=== PATIENT | female | born 1945 ===

== ENCOUNTER 2018-03-31 09:35 | Emergency (ER) | payer MEDICARE ==
[2018-03-31 09:46] VITALS: BMI 36.3
[2018-03-31 09:53] VITALS: BP 136/90; PULSE 79; RESP 18; TEMP 99; O2SAT 99
--- NOTE | 2018-03-31 10:43 | C.PDOC ---
History Of Present Illness 73 y/o female presents to the ED complaining of bilateral eye redness that began yesterday. Denies any trauma or change in vision. Reports both eyes are mildly itchy. No recent travel or sick contacts. Also denies pain with eye movement. Time Seen by Provider: 03/31/18 09:53 Chief Complaint (Nursing): Eye Problem History Per: Patient History/Exam Limitations: no limitations Onset/Duration Of Symptoms: Days (x2) Current Symptoms Are (Timing): Still Present Past Medical History Reviewed: Historical Data, Nursing Documentation, Vital Signs Vital Signs: Last Vital Signs Temp 99.0 F 03/31/18 09:49 Pulse 79 03/31/18 09:49 Resp 18 03/31/18 09:49 BP 136/90 03/31/18 09:49 Pulse Ox 99 03/31/18 14:41 - Medical History PMH: HTN Other Surgeries: Left knee surgery, tubal ligation Family History: States: No Known Family Hx - Social History Hx Alcohol Use: No Hx Substance Use: No Review Of Systems Except As Marked, All Systems Reviewed And Found Negative. Constitutional: Negative for: Fever Eyes: Positive for: Redness, Other (itchiness). Negative for: Pain, Vision Change ENT: Negative for: Ear Pain Respiratory: Negative for: Cough Physical Exam - Physical Exam Appears: Non-toxic, No Acute Distress Skin: Normal Color, Warm, Dry Head: Atraumatic, Normacephalic Eye(s): bilateral: EOMI, Other (Conjunctival injection bilaterally; Globes of both eyeballs are soft to palpation) Nose: Normal Oral Mucosa: Moist Neck: Normal ROM, Supple Chest: Symmetrical Respiratory: No Accessory Muscle Use, Other (No acute respiratory distress) Neurological/Psych: Oriented x3, Normal Speech ED Course And Treatment O2 Sat by Pulse Oximetry: 99 (RA) Pulse Ox Interpretation: Normal Medical Decision Making Medical Decision Making: Initial Impression: Conjunctivitis Time: 10:09 Plan: Counseled regarding diagnosis and treatment plan. Patient will be discharged with rx for polytrim drops. There is agreement to discharge plan. Disposition Counseled Patient/Family Regarding: Diagnosis, Need For Followup, Rx Given - Disposition Referrals: Zhou Rogers [Staff Provider] - Disposition: HOME/ ROUTINE Disposition Time: 10:15 Condition: GOOD Additional Instructions: MARK FELICIANO, thank you for letting us take care of you today. Your provider was Jered Santiago DO. The emergency medical care you received today was directed at your acute symptoms. If you were prescribed any medication , please fill it and take as directed. It may take several days for your symptoms to resolve. Return to the Emergency Department if your symptoms worsen , do not improve, or if you have any other problems. Please contact your doctor or call one of the physicians/clinics you have been referred to that are listed on the Patient Visit Information form that is included in your discharge packet. Bring any paperwork you were given at discharge with you along with any medications you are taking to your follow up visit. Our treatment cannot replace ongoing medical care by a primary care provider outside of the emergency department. Thank you for allowing the [facility] team to be part of your care today. Follow up with the eye doctor on Monday for re-evaluation and further management. MARK FELICIANO, angeline por dejarnos atedavon carranza. Coppola proveedor fue Jered Santiago DO. La atencin mdica de emergencia que recibi hoy estaba dirigida a mendy sntomas agudos. Si le prescribieron algn medicamento, llnelo y tome segn las indicaciones. Mendy sntomas pueden tardar varios morales en resolverse. Regrese al Departamento de Emergencia si mendy sntomas empeoran, no mejoran o si tiene algn otro problema. Comunquese con coppola mdico o llame a cameron de los mdicos / clnicas a los que horton sido referido que figura en el formulario de Informacin de visita del paciente que se incluye en coppola [place]qu[place] de isaias. Traiga todos los documentos que recibi al momento del isaias junto con los medicamentos que est tomando en coppola visita de seguimiento. Nuestro tratamiento no puede reemplazar la atencin mdica en curso por un proveedor de atencin primaria fuera del departamento de emergencia. Angeline por permitir que el equipo de [facility] sea parte de coppola cuidado hoy. Gonsalo un seguimiento con el oftalmlogo el lunes para kassie reevaluacin y administracin adicional. Prescriptions: Polymyxin/Trimethoprim Sulfate [Polytrim Ophth Soln] 2 drop OU Q4 #1 bottle Instructions: Conjunctivitis ([place]) (DC) Forms: [place] (Cymro) Print Language: PORTUGUESE - POA Present On Arrival: None - Clinical Impression Clinical Impression: Conjunctivitis - Scribe Statement The provider has reviewed the documentation as recorded by the Scribe (Catherine Lake) Provider Attestation: All medical record entries made by the Scribe were at my direction and personally dictated by me. I have reviewed the chart and agree that the record accurately reflects my personal performance of the history, physical exam, medical decision making, and the department course for this patient. I have also personally directed, reviewed, and agree with the discharge instructions and disposition.
== END 2018-03-31 10:30 | disposition home or self-care (01) ==
LOC: C.ER 09:35
DX: H10.9 Unspecified conjunctivitis (principal)